=== PATIENT | male | born 1955 | race Two or more races ===

== ENCOUNTER 2018-01-22 09:25 | Outpatient (CLI) | payer OTHER | END 2018-01-22 10:48 | disposition home or self-care (01) | LOC: SONOGRAMA 09:25 | DX: E04.2 Nontoxic multinodular goiter (principal) ==

== ENCOUNTER 2018-03-16 16:42 | Inpatient (IN) | payer OTHER ==
[~2018-03-16] VITALS: Ht 180.3 cm; Wt 90.7 kg
[2018-03-29] MEDS ORDERED: LOTREL 5-10 MG1 CAP PO (14:39)
[2018-03-29] MEDS ORDERED: LIPITOR20 MG PO (14:40)
[2018-03-29] MEDS ORDERED: PREVACID30 MG PO (14:40)
[2018-03-29] MEDS ORDERED: GLUCOPHAGE XR500 MG PO (14:40)
[2018-04-09] MEDS ORDERED: POLY119PG PO (09:29)
[2018-04-09] MEDS ORDERED: OXYC1TAB9 PO (09:30)
[2018-04-09] MEDS ORDERED: INTESTINEX680 M1 PO (09:30)
== END 2018-04-09 12:57 | disposition home or self-care (01) | DRG 331 ==
LOC: O/R 04-04 06:25 → SURG 04-04 11:51 → MEDI 04-04 11:51 → SURH 04-04 13:15 → SURG 04-04 20:40
PROVIDERS: Surgery
PROC: 0DJD8ZZ Inspection of Lower Intestinal Tract, Via Natural or Artificial Opening Endoscopic (ICD-10-PCS; 2018-04-04)
PROC: 4A033R1 Measurement of Arterial Saturation, Peripheral, Percutaneous Approach (ICD-10-PCS; 2018-04-04)
PROC: 4A12X4Z Monitoring of Cardiac Electrical Activity, External Approach (ICD-10-PCS; 2018-04-04)
PROC: 0DTN4ZZ Resection of Sigmoid Colon, Percutaneous Endoscopic Approach (ICD-10-PCS; principal; 2018-04-04 08:45)
DX: D17.5 Benign lipomatous neoplasm of intra-abdominal organs (principal); I11.9 Hypertensive heart disease without heart failure; E11.9 Type 2 diabetes mellitus without complications; G47.33 Obstructive sleep apnea (adult) (pediatric)

== ENCOUNTER 2018-04-03 10:58 | Day surgery (SDC) | payer OTHER ==
[~2018-04-03 10:58] MED LIST: GLUCOPHAGE XR500 MG PO; LIPITOR20 MG PO; LOTREL 5-10 MG1 CAP PO; PREVACID30 MG PO
== END 2018-04-03 17:10 | disposition home or self-care (01) ==
LOC: AMB-ENDOS 10:58
DX: D12.5 Benign neoplasm of sigmoid colon (principal)